=== PATIENT | female | born 2000 | race Two or more races ===

== ENCOUNTER → 2024-11-17 | Emergency (ER) | payer OTHER ==
[~2024-11-17] VITALS: Ht 162.6 cm; Wt 58.1 kg
[~2024-11-17] MED LIST: FAMOtidine 10 MG/ML (4ML VIAL) IV ONE; ONDANSETRON HCL 2 MG/ML VIAL IV ONE; PEPCID AC20 MG PO; ZOFRAN8 MG PO
[2024-11-17 12:35] VITALS: BP 132/76; O2SAT 100
[2024-11-17 14:33] LABS: HEMATOCRIT 39.9 % (36.0-45.00); MEAN CELL VOLUME 85.8 fL (80.00-100.00); PLATELET COUNT 255 K/uL (150-450); RED BLOOD COUNT 4.65 M/uL (4.00-6.00); RED CELL DISTRIBUTION WIDTH 12.6 % (11.5-14.5)
[2024-11-17 15:45] LABS: BILIRUBIN TOTAL 0.7 mg/dL (0.3-1.2); CALCIUM 9.2 mg/dL (8.5-10.1); CREATININE SERUM 0.47 mg/dL (0.55-1.02); GFR 162.8; GLOBULINA 3.8 G/DL (2.4-3.5); POTASSIUM 3.51 mEq/L (3.5-5.1); TOTAL PROTEIN 7.8 gm/dL (6.4-8.2)
== END | disposition home or self-care (01) ==
LOC: ER 12:32
PROVIDERS: General Practice
DX: O99.611 Diseases of the digestive system complicating pregnancy, first trimester (principal); K31.89 Other diseases of stomach and duodenum; K29.70 Gastritis, unspecified, without bleeding; Z3A.01 Less than 8 weeks gestation of pregnancy